=== PATIENT | male | born 1950 | race Caucasian/White ===

== ENCOUNTER → 2019-12-04 13:55 | Outpatient (CLI) | payer OTHER, SELFPAY ==
[2019-12-04 14:05] LABS: Bacteria Urine None Seen; RBC Urine None Seen (0-5/HPF); WBC Urine None Seen (0-5/HPF)
[2019-12-04 14:45] LABS: Appearance Urine UA CLEAR; Bilirubin Urine UA NEGATIVE (NEGATIVE); Color Urine UA YELLOW; Glucose Urine UA NEGATIVE (Negative); Ketones Urine UA NEGATIVE (NEGATIVE); Leukocyte Esterase Urine UA NEGATIVE (NEGATIVE); Nitrite Urine UA NEGATIVE (Negative); Occult Blood Urine UA NEGATIVE (Negative); Protein Urine UA NEGATIVE (Negative); Specific Gravity Urine UA 1.025 (1.000-1.035); Urobilinogen Urine UA 0.2 E.U./dL (0.2)
[2019-12-04 14:48] LABS: Add Manual Diff / Slide Review NO; Basophils Absolute Auto 100 /uL (0-100); Eosinophils Absolute Auto 100 /uL (0-450); Eosinophils Percent Auto 1.2 % (2-4); Hematocrit 39.7 % (41-53); Lymphocytes Absolute Auto 1800 /uL (1100-4500); Lymphocytes Percent Auto 33.4 % (25-40); Mean Corpuscular HGB Conc 32.7 % (30-36); Mean Corpuscular Hemoglobin 29.5 PG (26-34); Monocytes Absolute Auto 400 /uL (0-900); Monocytes Percent Auto 8.2 % (3-14); Neutrophils Absolute Auto 3000 /uL (1500-7000); Neutrophils Percent Auto 56.2 % (50-75); Platelet Count 181 X10^3/uL (150-400); Red Blood Cell Count 4.41 X10^6/uL (4.5-5.9); Red Cell Distribution Width 14.4 % (11.6-14.8); White Blood Cell Count 5.3 X10^3/uL (4.5-11.0)
[2019-12-04 14:50] LABS: Culture Indicated Urine Cult Not Indicated; Urine Comments Microscopic Normal
[2019-12-04 14:55] LABS: Hemoglobin A1C% w Est Avg Glu 5.6 % (4.0-6.0)
[2019-12-04 15:11] LABS: BUN Creatinine Ratio 23.9 (6-22); Blood Urea Nitrogen 21 mg/dL (9-20); Calcium 9.8 mg/dL (8.4-10.2); Carbon Dioxide 31 mmol/L (22-32); Chloride 101 mmol/L (98-107); Estimated Glomerular Filt Rate > 60.0 mL/min (>60); Glucose 119 mg/dL (80-110); HEMOLYSIS < 15 (0-50); Potassium 5.1 mmol/L (3.4-5.1); Sodium 137 mmol/L (137-145)
== END ==
PROVIDERS: Referring Provider Orthopaedic Surgery; Visit Provider Orthopaedic Surgery
DX: Z01.818 Encounter for other preprocedural examination (principal); Z01.812 Encounter for preprocedural laboratory examination; R73.9 Hyperglycemia, unspecified; N39.0 Urinary tract infection, site not specified
CPT/HCPCS: 36415; 80048; 81001; 83036; 85025; 93005

== ENCOUNTER → 2019-12-19 11:14 | Outpatient (CLI) | payer OTHER, SELFPAY ==
[2019-12-20 10:32] LABS: COVID19 Sendout Not Detected (Not Detect)
== END ==
PROVIDERS: Visit Provider Physician Assistant
DX: Z11.59 Encounter for screening for other viral diseases (principal)
CPT/HCPCS: 87635

== ENCOUNTER 2019-12-22 10:18 | Day surgery (SDC) | payer MEDICARE, OTHER, SELFPAY ==
[2019-12-15 12:49] VITALS: BMI 22.4
[2019-12-22] VITALS (16 sets, daily range): BP systolic 92–126; BP diastolic 56–78; PULSE 60–73; RESP 10–18; TEMP 35.6–36.5; O2SAT 98–100; BMI 21.7
--- NOTE | 2019-12-22 | DI.RAD.S_ITS ---
PROCEDURE: XR HIP W PEL IF DONE RT 4V INDICATIONS: INTRA OP RIGHT HIP FILMS TECHNIQUE: 2 view(s) of the hip acquired. COMPARISON: None. FINDINGS: Intraoperative images of right hip arthroplasty, with hardware components in expected positions. The hip joint appears congruent. The visualized bony structures appear intact. IMPRESSION: Intraoperative fluoroscopic support for right hip arthroplasty. No acute hardware complication. Normal alignment. Dictated by: Martin Fuller M.D. on 12/22/2019 at 15:42 Approved by: Martin Fuller M.D. on 12/22/2019 at 15:43
--- NOTE | 2019-12-22 | DI.RAD.S_ITS ---
PROCEDURE: XR HIP W PEL IF DONE RT 2V INDICATIONS: TOTAL RIGHT HIP POST OP TECHNIQUE: 2 view(s) of the hip acquired. COMPARISON: [facility], , XR HIP W PEL IF DONE RT 4V, 12/22/2019, 13:01. FINDINGS: Bones: Patient is status post right total hip arthroplasty, with hardware components in expected positions. The hip joint appears congruent. The visualized bony structures appear intact. Moderate degenerative changes of the left hip are present. Soft tissues: Overlying postoperative changes are noted. No suspicious soft tissue densities. IMPRESSION: Expected postoperative changes status post right total hip arthroplasty without acute hardware complication. Dictated by: Martin Fuller M.D. on 12/22/2019 at 15:47 Approved by: Martin Fuller M.D. on 12/22/2019 at 15:48
[2019-12-22] MEDS: LACTATED RINGERS 1,000 ML 42 ML IV ×2 (10:40→14:25)
[2019-12-22] MEDS: CELECOXIB 200 MG CAPSULE PO (10:45)
[2019-12-22] MEDS: VANCOMYCIN 1,000 MG/200 ML PIGGYBACK 200 MG IV ×2 (10:45→23:37)
[2019-12-22] MEDS: ACETAMINOPHEN 325 MG TABLET 975 MG PO (10:46)
--- NOTE | 2019-12-22 11:01 | P.OP_ITS ---
Operative Date/Time/Diagnoses Date of procedure: 12/22/19 Time of procedure: 11:41 Pre-op diagnosis: right hip OA Post-op diagnosis: same Procedure & Clinicians Procedure: Right total hip arthroplasty anterior approach Same procedure as scheduled: Yes Indications: The patient has had progressively worsening right hip pain with radiographic changes consistent with arthritis. Non-operative management has failed and the patient has requested total hip replacement. The risks, benefits and alternatives to surgery were discussed with the patient prior to proceeding. Risks discussed included, but were not limited to, failure to relieve pain, leg length discrepancy, dislocation, stiffness, infection, nerve damage, deep venous thrombosis, pulmonary embolism, stroke, coma, heart attack, permanent paralysis and , as well as the potential need for eventual revision of the prosthetic. Surgeon: Luz Latif Assistant District Attorney: Niels Mccartney Anesthesia Type: General and Spinal Operative Notes Findings: Severe right hip osteoarthritis, good quality bone, good stability Closure Type: primary Specimen(s): none sent Prosthetic devices, grafts, tissues, transplants, or devices: Latif and Nephew R3 54 mm cup. 54 mm cup, 15 mm, anthology standard offset size 9, -3 Oxinium head Estimated Blood Loss (mL): 250 Blood products transfused: none Procedure in detail: The patient was brought to the operating room. Patient was carefully positioned in the supine position. Time-out was performed and antibiotics were given. Anesthesia was induced. She was positioned in the on the table in order to allow hyperextension of the hip. The right lower extremity was prepped and draped in a standard sterile fashion. An anterior right hip incision was made 1 fingerbreadth lateral to the anterior superior iliac spine and extended distally towards the greater trochanter. Dissection was carried out through skin and subcutaneous tissues. The skin and subcutaneous tissues were carefully injected with Lidocaine with epi. Superficial hemostasis was achieved. The fascia over the tensor fascia yi was defined and incised with a knife. Two Allis clamps were used to grasp the fascia. Tensor fascia yi was retracted laterally. A gelpi retractor was placed. Dissection was carried out down along the neck. The circumflex vessels were carefully identified and cauterized with the Aqua Mantis. There was good visualization of the femoral neck. A Cobra was placed superior to the neck and the gluteus fibers were carefully stripped from that superior aspect of the capsule. A 2nd retractor was placed along the inferior aspect of the neck. The rectus insertion along the capsule was partially released. A 3rd retractor that was then gently placed over the rim of the acetabulum under the rectus. Capsule was carefully incised and released from the intertrochanteric line circumferentially superior to the mid sagittal line and inferiorly to the mid sagittal line until the lesser trochanter was palpable. A tag stitch was placed both in the superior and inferior limb of the capsular insertion. Along the acetabulum capsule was also released up to the mid sagittal 12:00 position. A portion of the labrum was resected. A saw was used to perform an osteotomy at the level of the intertrochanteric line and the junction of the superior femoral neck leaving approximately 1 finger breath of residual inferior neck above the lesser trochanter. A 2nd cut was made along the femoral neck at the base of the head and a napkin ring of neck was removed. Corkscrew was placed in the femoral head and the head was removed without difficulty. Retractors were then repositioned around the acetabulum. Residual labrum was resected and additional osteophytes were removed. A reamer that was 4 mm below the templated size was placed by hand in the acetabulum and it was reamed to centralize the acetabulum. It was then reamed up to 2 under the templated size and fluoroscopy was brought in to confirm the position of the reaming and depth of reaming. I reamed 1 under the anticipated size. A trial cup was placed and noted that it was appropriately sized and fluoroscopy confirmed position and depth. The component was open and inserted without difficulty fluoroscopic imaging was used to confirm that the cup had been adequately seated and was well positioned. It was further stabilized with a single screw. Neutral poly liner was placed. The cup was tested and noted to be stable. Attention was then directed to the femur. The femur was gently hyperextended additional capsular release was performed as needed in order to allow adequate visualization of the proximal femur with elevation of the femur. Patient was placed in a hyperextended slightly adducted position with maximum external rotation. Box osteotome was used to check for any residual neck as well as sclerotic bone along the trochanter. [place] pepper was placed in the femur. Additional broaching was performed. Canal finder was used to determine the ali gnment of the canal and position. Size 1 broach was placed. The canal was then appropriately broached up to the templated size as long as there was adequate stability of the broach and serial advancement of the broach without excessive impingement. Specific attention was directed at avoiding varus attempting to direct the distal aspect of the broach more anteriorly and avoiding excessive anteversion. Trial reduction showed acceptable range of motion, good stability, no posterior impingement, worship of leg length and appropriate lateral shuck. I also hyperflexed the hip and checked that there was no impingement anteriorly and there was good stability with flexion, adduction and internal rotation. Marcaine and Exparel were injected. The stem was placed without difficulty. Repeat trial reduction and x-ray showed acceptable overall position, length, and no evidence of the femoral fracture. Final head was placed. Wound was meticulously irrigated with normal saline. The hip was reduced and additional Exparel and Marcaine were injected. The capsule was closed with interrupted nonabsorbable sutures. The fascia of the tensor was closed with interrupted and running Vicryl. No drain was placed. Any tensor fascia yi muscle that appeared to be contused or injured which was a minimal amount was carefully resected. Capsule around the tensor was injected with Exparel and Marcaine. The skin was closed with barbed stitches for the subcutaneous tissue and skin. We also used surgical glue. The wound was dressed sterilely. Brief Betadine soak was also used and was meticulously irrigated with normal saline. Patient was transferred to recovery room in satisfactory condition. Complications: none Post-operative Condition: stable Disposition: Acute Care Plan for aftercare: The patient will be maintained on a standard total hip replacement protocol with weight bearing as tolerated and anterior hip precautions. The patient will receive Aspirin and sequential compression devices for DVT prophylaxis. The patient will be discharged home when safe for the home environment.
--- NOTE | 2019-12-22 11:01 | PM.PREOP ---
Pre-operative Note COVID-19 COVID-19 status: Negative Interval Note History & Physical reviewed/Exam performed by Physician: Yes Changes to H&P: No
[2019-12-22] MEDS: TRANEXAMIC ACID 1,000 MG VIAL 1000 MG INJ ×2 (11:35→14:21)
[2019-12-22] MEDS: GENTAMICIN 200 MG in SODIUM CHLORIDE 0.9% 100 ML 105 ML IV (11:50)
--- NOTE | 2019-12-22 12:07 | SUR.OPER ---
Supine, head on pillow, torso on pink pad positioner. Iliac crest at flex of foot end of table. Gel roll under operative hip. Both arms secured on arm boards <90 degrees abduction.
[2019-12-22] MEDS: BUPIVACAINE 0.25% W/ EPI 30 ML VIAL 60 ML INJ (12:14)
[2019-12-22] MEDS: BUPIVACAINE LIPOSOME 266 MG/20 ML VIAL INJ (12:15)
[2019-12-22] MEDS: SODIUM CHLORIDE IRRIG SOLUTION 250 ML, POVIDONE-IODINE SPONGE STICKS 1 APPLIC IRR (12:19)
[2019-12-22] MEDS: OXYCODONE/ACETAMINOPHEN 5/325 TABLET 1 TAB PO (15:05)
--- NOTE | 2019-12-22 16:05 | PC.NURSE ---
Post-op note: Martin brought from PACU to 213 via hospital bed, he is awake, alert, A&O x3 & situation. VS are stable. He denies right hip pain, reported my back hurts, pillow placed underneath knees to relieve pressure. Right anterior hip aquacel is CDI, ice pack in place. Pt reports RLE numb from hip extending to his toes; unable to wiggle toes, move legs, feet or toes. Does feel nurse hand pressure on right knee and lower leg. Leg slightly cool [id number], good color to skin & pedal pulses are strong bilaterally. Wearing bilateral calf SCD's. Denies nausea, ice chips given, fresh coffee being made as his only request is a cup of coffee. IV to right hand patent, drsg CDI. No J-loop present. J-loop placed, I assisted him to call his Sho, who said she is on her way to the hospital. Patient oriented to room & call button, instructed to call if has any needs/concerns. Fall precautions are in place, bed alarm activated.
[2019-12-22] MEDS: LACTATED RINGERS 1,000 ML 125 ML IV (16:30)
[2019-12-22] MEDS: ACETAMINOPHEN 325 MG TABLET 650 MG PO ×2 (18:21→22:05)
[2019-12-22] MEDS: IBUPROFEN 400 MG TABLET PO (18:21)
[2019-12-22] MEDS: ASPIRIN EC 81 MG TABLET PO (22:06)
[2019-12-22] MEDS: OXYCODONE IR 5 MG TABLET PO (23:42)
[2019-12-23] MEDS: IBUPROFEN 400 MG TABLET PO ×3 (00:01→09:10)
[2019-12-23 03:00] VITALS: BP 114/69; PULSE 76; RESP 16; TEMP 36.6; O2SAT 99
[2019-12-23] MEDS: OXYCODONE IR 5 MG TABLET PO (03:46)
[2019-12-23] MEDS: LEVOTHYROXINE 50 MCG TABLET PO (05:56)
[2019-12-23 06:05] LABS: Hematocrit 33.9 % (41-53); Hemoglobin 11.5 g/dL (13.5-17.5)
--- NOTE | 2019-12-23 07:48 | PM.PN.1 ---
Subjective Subjective Date Patient Seen: 12/23/19 Time Patient Seen: 07:48 Interval history: He notes that he is doing well overall. He is status post a right total hip arthroplasty. He did not have difficulty voiding and he has no nausea he has been up with nursing. Exam Vital Signs (past 8 hours): - 12/23/19 03:00 Temperature 97.9 F Pulse Rate 76 Respiratory Rate 16 Blood Pressure 114/69 Pulse Oximetry 99 Oxygen Delivery Method Room Air Oxygen Flow Rate 0 Narrative Exam Narrative: Dressing is dry, calfs are soft bilaterally no pain with gentle range of motion in the hip been able to do an active straight leg raise without difficulty, leg lengths are equal Objective Labs Result Diagrams: 12/23/19 05:47 Labs: Laboratory Results - last 24 hr 12/23/19 05:47 Hgb 11.5 L Hct 33.9 L Assessment & Plan Assessment & Plan narrative: Doing well status post right total hip arthroplasty continue to mobilize with physical therapy okay to discharge to home and follow up with me in about 10 days.
[2019-12-23 08:28] VITALS: BP 104/64; PULSE 70; RESP 17; TEMP 36.8; O2SAT 100
[2019-12-23] MEDS: ACETAMINOPHEN 325 MG TABLET 650 MG PO (09:10)
[2019-12-23] MEDS: ASPIRIN EC 81 MG TABLET PO (09:10)
[2019-12-23] MEDS: DOCUSATE 100 MG CAPSULE PO (09:10)
--- NOTE | 2019-12-23 10:55 | PC.NURSE ---
Assess- Patient is A&Ox3, up with physical therapy and ambulating well. Given tylenol and ibuprofen for discomfort and helpful. He has not needed any narcotic pain meds this shift thus far. Up and worked with physical therapy, he is going to be discharged around 1130. Dressing to anterior aspect of t.top hip is cdi with an aquacel in place. He is getting dressed at this time and sitting up in his chair.
--- NOTE | 2019-12-23 11:08 | PT.IIE ---
Current Diagnoses Unilateral primary osteoarthritis, right hip (12/22/19) Surgery Performed Operation Date: 12/22/19 12:15 Actual Procedures p Total Hip Arthroplasty/Anterior Approach(Right) - Luz Latif MD Surgical History (Last Updated 12/15/19 @ 13:12 by Taylor Woods, RN) Hx of shoulder surgery (Acute) Medical History (Last Updated 12/15/19 @ 13:12 by Taylor Woods, RN) History of torn meniscus of left knee (Acute) HLD (hyperlipidemia) (Acute) Hypothyroidism (Acute) Lipoma (Acute) Osteoarthritis (Acute) Physical Therapy Inpatient Evaluation/Re-Eval M1 PT/OT-IP Prior Functional Status Start: 12/23/19 08:36 Freq: NEEDED Status: Active Protocol: Document 12/23/19 09:00 (Rec: 12/23/19 11:08 [id number]) Medical Review Prior Functional Status Medical History Reviewed Yes Diet/Fluid Consistency Regular Communication no deficits noted. Effective communicator Mobility and Gait independent for all mobility without AD. Active hiker and biker couple times a week Activities of Daily Living and IADL's independent for ADLs and IADLs and able to drive Social History Household Members spouse Living Arrangements House Number of Floors (Floors) One Floor Number of Stairs To Enter/Railing? no MAMIE Home Environment Standard Height Toilet,Walk in Shower,Built-In Shower Seat Home Equipment Front Wheel Walker,Straight Cane,Raised Toilet Seat w/ Armrests,Shower Seat with Backrest,Security Services Manager,Grab Bars Near Toilet Employment Status Retired Additional Social History Comment Pt lives in [place] with his who is also very active and independent and will be able to assist if needed. Pt also has neighbors to assist if needed. Pt just retired yesterday from [employer]. M2 PT-IP Current Condition Start: 12/23/19 08:36 Freq: NEEDED Status: Active Protocol: Document 12/23/19 09:00 (Rec: 12/23/19 11:08 [email or web address]) Physical Therapy Current Condition Current Condition Evaluation Date 12/23/19 Treatment Diagnosis R MODESTO (anterior) ,difficulty in walking Onset Date 12/22/19 Precautions Anterior Hip Precautions No Hip Extension,No Hip External Rotation Weight Bearing Status Weight Bearing Status Weight Bear as Tolerated M3 PT-IP Subjective Start: 12/23/19 08:36 Freq: NEEDED Status: Active Protocol: Document 12/23/19 09:00 (Rec: 12/23/19 11:08 [email or web address]) Subjective Physical Therapy Visit Type Type Initial Evaluation Visit Start Time 09:00 Visit Stop Time 09:24 Total Visit Minutes 24 Number of CALTRANS EQUIPMENT OPERATOR Visits 0 Physical Therapy Visit Comments Patient Comments I dont have any pain at this point. Patient Goals To return home with his Therapy Pain Assessment Pain When Pain Assessed During Mobility Pain Present Pain Present Pain Reported Location Right Hip Intensity 1 Scale Used Numeric (0 - 10) Description Aching Pain Management Techniques Modification of Treatment,Re- positioning,Timing of Activity with Medications M4 PT-IP Mobility and Gait Start: 12/23/19 08:36 Freq: NEEDED Status: Active Protocol: Document 12/23/19 09:00 (Rec: 12/23/19 11:08 [email or web address]) PT-Transfer Assessment Sit to and From Stand Sit to and from Stand Standby Assistance,Use of Upper Extremities Equipment Transfer Assistive Device Gait Belt,Front Wheeled Walker Orthotic/Prosthetic Devices or Brace: No Transfers Transfer Destination Chair Transfer Technique Stand Step Pivot Transfer Ability Level of Assist Standby Assistance,Use of Upper Extremities Comments Mobility Comments Pt was up in chair upon PT arrival. BP at 96/61. Denies pain and discomfort. Pt able to recall all precautions and agreed to mobilize with PT. Pt then stood up with B UE push off from armrests with SBA. He practiced standing lateral weight shift for weight acceptance on LLE. He then proceed to amb with FWW SBA to hallway. Pt initially amb with slight R toe in gait and lack of heel strike, but he was able to correct with cues. Pt reports minimal discomfort and able to amb with close to normal gait mechanics. Pt amb 440 ft in AC unit without c/o discomfort. Pt returned to room and sat in chair with SBA . BP at 98/56. Call light placed within reach. Gait Assessment Gait Gait Assistance Required: Standby Assistance Distance (Feet) 440 Able to Maintain Weight Bearing Status Yes During Gait Assistive Devices Assistive Device Gait Belt,Small Based Quad Cane,Front Wheeled Walker Gait Deviations General Gait Pattern Antalgic,Decreased Stride Length,Decreased Feet Clearance Factors Limiting Gait Function Factors Limiting Gait Function Decreased Activity Tolerance, Decreased Strength,Limited Range of Motion,Pain,Poor Balance Comments Gait Comments see mobility comments. Stair Climbing Assessment Comments Stair Climbing Comments no steps at home PT-Balance Assessment Sitting Balance and Reactions Static Sitting Balance Ability Normal Dynamic Sitting Balance Ability Normal Standing Balance and Reactions Static Standing Balance Ability Normal Dynamic Standing Balance Ability Good Device Used FWW M5 PT-IP Objective Assessments Start: 12/23/19 08:36 Freq: NEEDED Status: Active Protocol: Document 12/23/19 09:00 (Rec: 12/23/19 11:08 [email or web address]) Orientation Orientation/Cognition Level of Alertness Alert Orientation Name,Age,Birthday,Month,Date, Year,Day of Week,Place, Situation Language Function Ability No Deficits Noted Safety Awareness Understands Safety Issues Memory Description No Deficits Noted Gross Range of Motion Upper Extremity ROM Assessment Within Functional Limits Lower Extremity ROM Assessment Right Impaired Strength Upper Extremity Strength Assessment Within Functional Limits Lower Extremity Strength Assessment Right Impaired Hip 4/5 Knee 5/5 Coordination Assessment Gross Coordination Gross Coordination WNL Sensation Assessment Sensation Gross Sensation WNL Muscle Tone Muscle Tone WNL Yes M6 PT-IP Treatment Start: 12/23/19 08:36 Freq: NEEDED Status: Active Protocol: Document 12/23/19 09:00 (Rec: 12/23/19 11:08 [email or web address]) Physical Therapy Treatment Education Education Provided Precautions,Weight Bearing Status,Post-Op Packet,Safety M7 PT-IP Assessment and Plan Start: 12/23/19 08:36 Freq: NEEDED Status: Active Protocol: Document 12/23/19 09:00 (Rec: 12/23/19 11:08 [email or web address]) PT Summary Assessment and Plan Potential Rehabilitation Potential Excellent Status of Condition at Evaluation Stable Summary Impairments Pain,ROM,Strength,Balance,Gait ,Activity Tolerance Progress Towards Goals Safe For Discharge Assessment Summary This is a low complexity evaluation for this 69yo male s/p POD1 RTHA with anterior approach. Pt understands all post op precautions and have good safety awareness. Upon assessment, pt ambulated 440 ft with FWW SBA with close to normal gait mechanics. He was also very safe for transfers and demonstrated good transfer mechanics. Pt is safe to go home with 's assistance and outpatient therapy to improve his mobility and strength. Frequency of Treatment Frequency Of Treatment Discharge Recommendations To Nursing Amount of Assist Needed Standby Assistance Discharge Recommendations PT Discharge Recommendations Home with Assistance, Outpatient PT Transportation Needs at Discharge Private Vehicle
--- NOTE | 2019-12-23 14:39 | CM.DANOTE ---
DCP/Assessment: Reviewed chart. Patient is a 69yr old male admitted to [facility] for right MODESTO performed on 12-22-[address] Latif. No PCP listed. Primary payor is 1)[facility] Medicare 2)Medicare A only. Attempted to meet with patient this afternoon. Patient cleared by therapy and discharged by orthopedic team. Spoke with RN/Shirley whom reports patient had no d/c planning needs. P: Home today. Patient plans to do outpatient therapy at orthopedics, had all needed DME. KELLI Burger Discharge Planning/Care Management CM Discharge Assessment Start: 12/23/19 14:32 Freq: Status: Active Protocol: Document 12/23/19 14:32 KJS (Rec: 12/23/19 14:39 KJS [id number]) Discharge Planning Assessment Assigned Research Development Director KELLI Burger Contact Information Sho Baer (spouse) Advance Directives? Yes Advance Directives on File No History Provided By Medical Record Has Patient been admitted in last 30 No days? Prior Living Arrangements House Household Members spouse Type of transporation used prior to Drives own vehicle admit Independent with ADL's Yes: Per nrsg patient, patient I with ADL's. Is patient alert and oriented? Yes Caregiver for Another No DME Already Rented / Owned FWW / Walker Patient/Family Preference OP PT Therapy Barriers to Discharge No Discharge Plan Home Transportation Arrangement Family to provide transport. Referrals Initiated None needed Review Status In Process Next Review Type Continued Stay Review Pre-Anesthesia Assessment Start: 12/15/19 12:49 Freq: Status: Discharge Protocol: Document 12/15/19 12:49 CAB (Rec: 12/15/19 13:26 CAB [id number]) Pre-Anesthesia Assessment Patient Information Reviewed Via Phone Assessment Assessment Completed With Patient Diagnostic Results BMP/CMP,CBC,EKG,Urinalysis Comment Labs/EKG @ 12/04/19 COVID screen scheduled for 12/18 @ Primary Care Provider Alejandrina Seen Specialist in Last 12 Months Yes Specialist Seen Policy Loan Calculator,Orthopedist, Other Comment Sports med Primary Language South Korean Lead Developer Required No Height 182.88 cm Weight 74.843 kg Body Mass Index (BMI) 22.4 Hearing Ability Normal Visual Assist Glasses Dentition Type Teeth, Natural Present Barriers to Learning None Hx Anesthesia Reactions Yes: Pt feels anesthesia caused extreme constipation s/ p lipoma removed Hx Family Anesthesia Reaction No Hx Malignant Hyperthermia No Hx Blood Transfusions No Anesthesia Review Requested No Asphalt Coater No alcohol intake current alcohol intake frequency 0-2 drinks per day Smoking Status Former smoker Tobacco type cigarettes,pipe how long ago did patient quit smoking Quit 1973 Substance Use Type marijuana Comment Advised not to smoke marijuana 24 hours prior Pain Present Pain Reported Musculoskeletal Symptoms Abnormal Gait,Difficulty Walking,Joint Pain History of Falling (Recent or History of No ) Patient is completely paralyzed or No completely immobile Mental Status Oriented to own ability Is patient on oxygen? No Does patient have SALEH/SOB No Hx Sleep Apnea No Currently Taking a Beta Raf No Can You Climb a Flight of Stairs Without Yes SOB Hx Chest Pain No Hx SOB No Hx Syncope or Dizziness No Anti-Coagulant Therapy No Has a Clinic Receptionist No Cardiac Testing No Hx Pacemaker/ICD No Pacemaker Rep Required? No Cardiac Clearance Received Not Applicable Diet Type At Home Regular dysphagia No Gastrointestinal Symptoms Constipation Urinary Catheter Present No Hx Urinary Self Catheterization No Diabetes No HgbA1C 5.6 Date 12/04/19 Hx Drug Resistant Organism No Presence of External or Internal Medical No Devices Have you had any close contact with No someone diagnosed with COVID-19? Evaluation/Screening for possible COVID- Yes 19 infection completed? Marital Status Lives With spouse Prior Living Arrangements House Number of Floors (Floors) One Floor Support System Spouse Does the Patient Have Assistance After Yes Surgery Patient Discharge Plan Description Return Home Comment Pt advised possible same day surgery per surgeon Feels Safe in Current Environment Yes Been Physically Hurt or Threatened By a No Person in Current Environment Do you have thoughts of harming yourself None or others? Are you currently considering suicide? No Do you have a plan to hurt yourself or No Plan others? Do You Have Any Spiritual Beliefs That No May Affect Your HC Choices? Do You Have Any Cultural Practices That No May Affect Your HC Choices? Comment Christianity Who Can We Speak to About Patient's Care Family, friends Identifying Code for Release of Patient Declines to issue Information Health Care Proxy/Next of Kin Sho () Health Care Proxy Emergency Contact Name Sho () Emergency Contact Advance Directives? Yes Advance Directives on File No Requested Patient Bring Advanced Yes Directives DOS Power of Cable Placer Yes Power of Cable Placer Name Sho () Power of Cable Placer PAC Instructions Durable medical equipment, Medications to take/avoid, Nasal antibiotic,No ETOH/ petroleum product on skin DOS, NPO,Post-op transportation,Pre -surgical wash,Sturdy shoes/ comfortable clothes,Do not bring valuables and remove jewelry
== END 2019-12-23 11:37 | disposition home or self-care (01) ==
LOC: OR 10:26 → AC 10:26
PROVIDERS: Referring Provider Orthopaedic Surgery; Visit Provider Orthopaedic Surgery
PROC: (CPT 27130; principal; 2019-12-22 12:15)
DX: M16.11 Unilateral primary osteoarthritis, right hip (principal); E03.9 Hypothyroidism, unspecified
CPT/HCPCS: 27130; 36415; 73502; 73503; 76000; 85014; 85018; 97116; 97161; C1776; C9290; J1100; J2250; J2405; J2704; J3010

== ENCOUNTER → 2020-05-03 08:10 | Outpatient (CLI) | payer MEDICARE, OTHER, SELFPAY ==
[2019-12-22 16:19] VITALS: BMI 21.7
--- NOTE | 2020-05-03 | DI.US.S_ITS ---
PROCEDURE: US ABD AORTA ANEURYSM SCREEN INDICATIONS: SCREENING FOR CARDIOVASCULAR DISORDERS TECHNIQUE: Real time scanning was performed of the aorta and iliac arteries, with image documentation. COMPARISON: None. FINDINGS: Aorta: Proximal aortic diameter measures 2.3 x 2.4 cm. Mid-aorta measures 2 x 2.1 cm. Distal aortic diameter is 1.8 x 1.8 cm. Iliac arteries: Right common iliac artery measures 1 x 1.4 cm. Left common iliac artery measures 1.1 x 1.2 cm. IMPRESSION: Negative for aneurysm. Dictated by: Gato Sharif M.D. on 05/03/2020 at 8:15 Approved by: Gato Sharif M.D. on 05/03/2020 at 8:16
== END ==
PROVIDERS: Referring Provider Family Medicine Adult Medicine; Visit Provider Family Medicine Adult Medicine
DX: Z13.6 Encounter for screening for cardiovascular disorders (principal)
CPT/HCPCS: 76706

== ENCOUNTER → 2021-09-26 11:18 | Outpatient (CLI) | payer OTHER, SELFPAY ==
[2019-12-22 16:19] VITALS: BMI 21.7
--- NOTE | 2021-09-26 11:32 | DI.RAD.S_ITS ---
PROCEDURE: XR CERVICAL SPINE 2V OR 3V INDICATIONS: CHEST PAIN TECHNIQUE: 3 view(s) of the cervical spine were acquired. COMPARISON: None. FINDINGS: Bones: No fractures or dislocations to the T1 level. The lateral masses of C1 appear intact on the odontoid view. No suspicious bony lesions. Severe cervical spondylosis with multilevel facet arthropathy and multilevel disc height loss and uncovertebral joint hypertrophy. There is interbody fusion at C4-C5. Soft tissues: No prevertebral soft tissue swelling. IMPRESSION: Severe cervical spondylitic change. Dictated by: Power Dye M.D. on 09/26/2021 at 12:30 Approved by: Power Dye M.D. on 09/26/2021 at 12:33
--- NOTE | 2021-09-26 11:33 | DI.RAD.S_ITS ---
PROCEDURE: XR FOOT LT MIN 3V INDICATIONS: LEFT FOOT PAIN TECHNIQUE: 3 views of the foot were acquired. COMPARISON: None. FINDINGS: Bones: No fractures or dislocations. No suspicious bony lesions. Scattered IP degenerative narrowing is present. Soft tissues: No tibiotalar joint effusion. Achilles tendon appears normal. IMPRESSION: Scattered degenerative changes consistent with arthritis. Dictated by: Danielle Wilson M.D. on 09/26/2021 at 12:31 Approved by: Danielle Wilson M.D. on 09/26/2021 at 12:32
== END ==
PROVIDERS: PCP Internal Medicine; Referring Provider Internal Medicine; Visit Provider Internal Medicine
DX: M47.812 Spondylosis without myelopathy or radiculopathy, cervical region (principal); M79.672 Pain in left foot; M54.2 Cervicalgia; R07.9 Chest pain, unspecified
CPT/HCPCS: 72040; 73630

== ENCOUNTER → 2022-02-02 15:22 | Outpatient (CLI) | payer OTHER, SELFPAY ==
[2019-12-22 16:19] VITALS: BMI 21.7
[2022-02-02 17:06] LABS: Appearance Urine UA CLEAR; Bilirubin Urine UA NEGATIVE (NEGATIVE); Color Urine UA YELLOW; Glucose Urine UA TRACE g/dL (Negative); Ketones Urine UA TRACE (NEGATIVE); Leukocyte Esterase Urine UA NEGATIVE (NEGATIVE); Nitrite Urine UA NEGATIVE (Negative); Occult Blood Urine UA NEGATIVE (Negative); Protein Urine UA NEGATIVE (Negative); Urobilinogen Urine UA 0.2 E.U./dL (0.2)
[2022-02-02 17:20] LABS: Amorphous Sediment Urine 1+; Bacteria Urine None Seen; Culture Indicated Urine Cult Not Indicated; RBC Urine None Seen (0-5/HPF); WBC Urine None Seen (0-5/HPF)
[2022-02-02 18:24] LABS: Add Manual Diff / Slide Review NO; Basophils Absolute Auto 100 /uL (0-100); Basophils Percent Auto 0.7 % (0-2); Eosinophils Absolute Auto 0 /uL (0-450); Eosinophils Percent Auto 0.5 % (2-4); Hematocrit 37.6 % (41-53); Hemoglobin 12.8 g/dL (13.5-17.5); Lymphocytes Absolute Auto 1600 /uL (1100-4500); Lymphocytes Percent Auto 22.2 % (25-40); Mean Corpuscular HGB Conc 34.1 % (30-36); Mean Corpuscular Hemoglobin 29.9 PG (26-34); Mean Corpuscular Volume 87.5 fL (80-100); Monocytes Absolute Auto 500 /uL (0-900); Monocytes Percent Auto 6.8 % (3-14); Neutrophils Absolute Auto 5100 /uL (1500-7000); Neutrophils Percent Auto 69.8 % (50-75); Platelet Count 219 X10^3/uL (150-400); Red Cell Distribution Width 14.3 % (11.6-14.8); White Blood Cell Count 7.3 X10^3/uL (4.5-11.0)
[2022-02-02 18:26] LABS: Alanine Aminotransferase 19 IU/L (<50); Albumin 4.3 g/dL (3.5-5.0); Albumin Globulin Ratio 1.4 (1.0-2.8); Alkaline Phosphatase 70 U/L (38-126); Aspartate Aminotransferase 25 IU/L (17-59); Bilirubin Total 0.8 mg/dL (0.2-1.3); Blood Urea Nitrogen 22 mg/dL (9-20); Calcium 9.4 mg/dL (8.4-10.2); Carbon Dioxide 30 mmol/L (22-32); Chloride 100 mmol/L (98-107); Estimated Glomerular Filt Rate > 60 mL/min (>60); Glucose 98 mg/dL (80-110); HEMOLYSIS < 15 (0-50); Potassium 3.9 mmol/L (3.4-5.1); Sodium 140 mmol/L (137-145); Total Protein 7.3 g/dL (6.3-8.2)
[2022-02-02 20:22] LABS: Hemoglobin A1C% w Est Avg Glu 5.6 % (4.0-6.0)
== END ==
PROVIDERS: PCP Internal Medicine; Referring Provider Orthopaedic Surgery; Visit Provider Orthopaedic Surgery
DX: Z01.818 Encounter for other preprocedural examination (principal); R73.9 Hyperglycemia, unspecified; Z01.812 Encounter for preprocedural laboratory examination; N39.0 Urinary tract infection, site not specified; E78.5 Hyperlipidemia, unspecified
CPT/HCPCS: 36415; 80053; 81001; 83036; 85025; 93005; 93010

== ENCOUNTER → 2022-02-19 13:02 | Outpatient (CLI) | payer OTHER, SELFPAY ==
[2019-12-22 16:19] VITALS: BMI 21.7
[2022-02-19 14:11] LABS: COVID19 -Nasal RAPID Negative (Negative)
== END ==
PROVIDERS: PCP Internal Medicine; Referring Provider Orthopaedic Surgery; Visit Provider Orthopaedic Surgery
DX: Z20.822 Contact with and (suspected) exposure to COVID-19 (principal)
CPT/HCPCS: 87635; C9803

== ENCOUNTER 2022-02-20 06:40 | Observation (INO) | payer OTHER, SELFPAY ==
[2019-12-22 16:19] VITALS: BMI 21.7
[2022-02-13 09:49] VITALS: BMI 21.4
[2022-02-20] VITALS (14 sets, daily range): BP systolic 92–119; BP diastolic 53–79; PULSE 56–75; RESP 14–19; TEMP 35.8–37; O2SAT 94–100; BMI 21.4
[2022-02-20] MEDS: PREGABALIN 75 MG CAPSULE PO (07:12)
[2022-02-20] MEDS: CELECOXIB 200 MG CAPSULE PO (07:12)
[2022-02-20] MEDS: ACETAMINOPHEN 325 MG TABLET 975 MG PO (07:12)
[2022-02-20] MEDS: VANCOMYCIN 1,000 MG/200 ML PIGGYBACK 200 MG IV ×2 (07:12→18:37)
[2022-02-20] MEDS: LACTATED RINGERS 1,000 ML 42 ML IV (07:14)
--- NOTE | 2022-02-20 07:40 | PM.PREOP ---
Pre-operative Note COVID-19 COVID-19 status: Negative Interval Note History & Physical reviewed/Exam performed by Physician: Yes Changes to H&P: No
--- NOTE | 2022-02-20 07:40 | PM.OP.1 ---
Operative Date/Time/Diagnoses Date of procedure: 02/20/22 Time of procedure: 07:55 Pre-op diagnosis: left hip OA Post-op diagnosis: same Procedure & Clinicians Procedure: Left total hip arthroplasty anterior approach Same procedure as scheduled: Yes Indications: The patient has had progressively worsening left hip pain with radiographic changes consistent with arthritis. Non-operative management has failed and the patient has requested total hip replacement. The risks, benefits and alternatives to surgery were discussed with the patient prior to proceeding. Risks discussed included, but were not limited to, failure to relieve pain, leg length discrepancy, dislocation, stiffness, infection, nerve damage, deep venous thrombosis, pulmonary embolism, stroke, coma, heart attack, permanent paralysis and , as well as the potential need for eventual revision of the prosthetic. Surgeon: Luz Latif Compliance Representative Dealer: Niels Mccartney Anesthesia Type: General and Spinal Operative Notes Findings: Severe left hip arthritis, adequate stability, adequate bone Closure Type: primary Specimen(s): none sent Prosthetic devices, grafts, tissues, transplants, or devices: Latif and nephew R3 54 anthology, two 6.5 mm screw, size 9 standard offset anthology, neutral poly liner,-3 Oxinium femoral head Estimated Blood Loss (mL): 250 Blood products transfused: none Procedure in detail: The patient was brought to the operating room. Patient was carefully positioned in the supine position. Time-out was performed and antibiotics were given. Anesthesia was induced. He was positioned in the on the table in order to allow hyperextension of the hip. The left lower extremity was prepped and draped in a standard sterile fashion. An anterior left hip incision was made 1 fingerbreadth lateral to the anterior superior iliac spine and extended distally towards the greater trochanter. Dissection was carried out through skin and subcutaneous tissues. Superficial hemostasis was achieved. The fascia over the tensor fascia yi was defined and incised with a knife. Two Allis clamps were used to grasp the fascia. Tensor fascia yi was retracted laterally. A gelpi retractor was placed. Dissection was carried out down along the neck. The circumflex vessels were carefully identified and cauterized with the Aqua Mantis. There was good visualization of the femoral neck. A Cobra was placed superior to the neck and the gluteus fibers were carefully stripped from that superior aspect of the capsule. A 2nd retractor was placed along the inferior aspect of the neck. The rectus insertion along the capsule was partially released. A 3rd retractor that was then gently placed over the rim of the acetabulum under the rectus. Capsule was carefully incised and released from the intertrochanteric line circumferentially superior to the mid sagittal line and inferiorly to the mid sagittal line until the lesser trochanter was palpable. A tag stitch was placed both in the superior and inferior limb of the capsular insertion. Along the acetabulum capsule was also released up to the mid sagittal 12:00 position. A portion of the labrum was resected. A saw was used to perform an osteotomy at the level of the intertrochanteric line and the junction of the superior femoral neck leaving approximately 1 finger breath of residual inferior neck above the lesser trochanter. A 2nd cut was made along the femoral neck at the base of the head and a napkin ring of neck was removed. Corkscrew was placed in the femoral head and the head was removed without difficulty. Retractors were then repositioned around the acetabulum. Residual labrum was resected and additional osteophytes were removed. A reamer that was 4 mm below the templated size was placed by hand in the acetabulum and it was reamed to centralize the acetabulum. It was then reamed up to 2 under the templated size and fluoroscopy was brought in to confirm the position of the reaming and depth of reaming. I reamed 1 under the anticipated size. A trial cup was placed and noted that it was appropriately sized and fluoroscopy confirmed position and depth. The component was open and inserted without difficulty fluoroscopic imaging was used to confirm that the cup had been adequately seated and was well positioned. The cup was further stabilized with 2 screws. Neutral poly liner was placed. The cup was tested and noted to be stable. Attention was then directed to the femur. The femur was gently hyperextended additional capsular release was performed as needed in order to allow adequate visualization of the proximal femur with elevation of the femur. Patient was placed in a hyperextended slightly adducted position with maximum external rotation. Box osteotome was used to check for any residual neck as well as sclerotic bone along the trochanter. [place] pepper was placed in the femur. Additional broaching was performed. Canal finder was used to determine the alignment of the canal and position. Size 1 broach was placed. The canal was then appropriately broached up to the templated size as long as there was adequate stability of the broach and serial advancement of the broach without excessive impingement. Specific attention was directed at avoiding varus attempting to direct the distal aspect of the broach more anteriorly and avoiding excessive anteversion. Trial reduction showed acceptable range of motion, good stability, no posterior impingement, episcopalian of leg length and appropriate lateral shuck. I also hyperflexed the hip and checked that there was no impingement anteriorly and there was good stability with flexion, adduction and internal rotation. Marcaine and Exparel were injected. The stem was placed without difficulty. Repeat trial reduction and x-ray showed acceptable overall position, length, and no evidence of the femoral fracture. Final head was placed. Wound was meticulously irrigated with normal saline. The hip was reduced and additional Exparel and Marcaine were injected. The capsule was closed with interrupted nonabsorbable sutures. The fascia of the tensor was closed with interrupted and running Vicryl. No drain was placed. Any tensor fascia yi muscle that appeared to be contused or injured which was a minimal amount was carefully resected. Capsule around the tensor was injected with Exparel and Marcaine. The skin was closed with barbed stitches for the subcutaneous tissue and skin. We also used surgical glue. The wound was dressed sterilely. Brief Betadine soak was also used and was meticulously irrigated with normal saline. Patient was transferred to recovery room in satisfactory condition. Complications: none Post-operative Condition: stable Disposition: Acute Care Plan for aftercare: The patient will be maintained on a standard total hip replacement protocol with weight bearing as tolerated and anterior hip precautions. The patient will receive Aspirin and sequential compression devices for DVT prophylaxis. The patient will be discharged home when safe for the home environment.
--- NOTE | 2022-02-20 08:00 | DI.RAD.S_ITS ---
PROCEDURE: XR HIP W PEL IF DONE LT 2V INDICATIONS: INNER OP LEFT TECHNIQUE: 4 intraoperative fluoroscopic images of pelvis and left hip acquired. COMPARISON: [facility], , XR HIP W PEL IF DONE RT 2V, 12/22/2019, 14:49. FINDINGS: Intraoperative fluoroscopic images of pelvis and left hip shows left total hip arthroplasty in progress. IMPRESSION: Fluoro guidance was provided intraoperatively for left total hip arthroplasty. Dictated by: Jose Lam M.D. on 02/20/2022 at 12:12 Approved by: Jose Lam M.D. on 02/20/2022 at 12:13
[2022-02-20] MEDS: CLINDAMYCIN 900 MG/50 ML PIGGYBACK 50 MG IV (08:10)
[2022-02-20] MEDS: TRANEXAMIC ACID 1,000 MG VIAL 1000 MG INJ ×2 (08:10→10:15)
--- NOTE | 2022-02-20 08:26 | SUR.OPER ---
Supine on padded [place] table with bilateral legs secured in padded positioning boots and suspended in positioning spars, operative leg in traction per surgeon. Head on one pillow. Arm on non-operative side secured on padded armboard <90 degrees abduction. Arm on operative side padded and resting across chest then secured with tape over sheet. Padded perineal post in place per surgeon. POSITION APPROVED BY SURGEON AND ANESTHESIA
[2022-02-20] MEDS: BUPIVACAINE 0.25% (PF) 60 ML, EPINEPHrine 0.3 MG INJ (10:15)
[2022-02-20] MEDS: BUPIVACAINE LIPOSOME 266 MG/20 ML VIAL INJ ×2 (10:15→10:29)
--- NOTE | 2022-02-20 10:30 | DI.RAD.S_ITS ---
PROCEDURE: XR HIP W PEL IF DONE LT 2V INDICATIONS: LEFT ANTERIOR HIP TECHNIQUE: AP pelvis and lateral view of the left hip acquired. COMPARISON: [facility], [place], XR HIP W PEL IF DONE LT 2V, 02/20/2022, 9:24. FINDINGS: Bones: Patient is status post left hip arthroplasty, with hardware components in expected positions. The hip joint appears congruent. The visualized bony structures appear intact. Soft tissues: Overlying postoperative changes are noted. No suspicious soft tissue densities. IMPRESSION: Postop changes from left hip arthroplasty with anatomic hip alignment. Dictated by: Jose Lam M.D. on 02/20/2022 at 11:37 Approved by: Jose Lam M.D. on 02/20/2022 at 11:44
[2022-02-20] MEDS: HYDROMORPHONE 2 MG INJ IV ×2 (10:58→11:03)
[2022-02-20] MEDS: OXYCODONE IR 5 MG TABLET PO (11:00)
[2022-02-20] MEDS: LACTATED RINGERS 1,000 ML 125 ML IV ×2 (11:45→18:39)
--- NOTE | 2022-02-20 12:31 | PC.NURSE ---
PATIENT BROUGHT UP FROM PACU TO 221, ORIENTED TO ROOM AND CALL LIGHT. VSS. PAIN IS MILD, DULL TO LEFT HIP WITH ICE PACK IN PLACE. DRESSING CDI, BRUISING TO LEFT POSTERIOR THIGH NOTED. URINAL PLACED WITHIN REACH. CONTINUE TO MONITOR.
[2022-02-20] MEDS: IBUPROFEN 400 MG TABLET PO ×2 (13:34→18:37)
[2022-02-20] MEDS: ACETAMINOPHEN 325 MG TABLET 650 MG PO ×2 (13:35→18:37)
--- NOTE | 2022-02-20 16:18 | PT.IIE ---
Current Diagnoses Unilateral primary osteoarthritis, left hip (02/20/22) Surgery Performed Operation Date: 02/20/22 07:45 Actual Procedures p Total Hip Arthroplasty/Anterior Approach(Left) - Luz Latif MD Surgical History (Last Updated 02/13/22 @ 09:55 by Taylor Woods, RN) History of total right hip arthroplasty (12/22/19) Hx of shoulder surgery Medical History (Last Updated 12/15/19 @ 13:12 by Taylor Woods RN) History of torn meniscus of left knee HLD (hyperlipidemia) Hypothyroidism Lipoma Osteoarthritis Physical Therapy Inpatient Evaluation/Re-Eval M1 PT/OT-IP Prior Functional Status Start: 02/20/22 16:18 Freq: NEEDED Status: Active Protocol: Document 02/20/22 16:18 DLM (Rec: 02/20/22 16:30 DLM [id number]) Medical Review Prior Functional Status Medical History Reviewed Yes Diet/Fluid Consistency Regular Communication WNL, wears glasses Mobility and Gait Independent without device community distances, left hip pain when walking before surgery Activities of Daily Living and IADL's Independent Prior Functional Level (Other details) he is active with hiking and biking, he has trips to the [employer] planned Social History Household Members spouse Living Arrangements House Number of Floors (Floors) One Floor Number of Stairs To Enter/Railing? no steps to enter Home Environment Standard Height Toilet,Walk in Shower,Built-In Shower Seat Home Equipment Front Wheel Walker,Straight Cane,Raised Toilet Seat w/ Armrests,Shower Seat with Backrest,Lease Analyst,Grab Bars Near Toilet Employment Status Retired Additional Social History Comment retired from [employer] M2 PT-IP Current Condition Start: 02/20/22 16:18 Freq: NEEDED Status: Active Protocol: Document 02/20/22 16:18 DLM (Rec: 02/20/22 16:30 DLM [id number]) Physical Therapy Current Condition Current Condition Evaluation Date 02/20/22 Treatment Diagnosis left anterior [place], difficulty walking Onset Date 02/20/22 M3 PT-IP Subjective Start: 02/20/22 16:18 Freq: NEEDED Status: Active Protocol: Document 02/20/22 16:18 DLM (Rec: 02/20/22 16:30 DLM [id number]) Subjective Physical Therapy Visit Type Type Initial Evaluation Visit Start Time 15:45 Visit Stop Time 16:18 Total Visit Minutes 33 Number of DIGITAL TECHNICIAN Visits 0 Physical Therapy Visit Comments Patient Comments He reports only having a little aching in left hip area today Patient Goals Discharge home with to help tomorrow M4 PT-IP Mobility and Gait Start: 02/20/22 16:18 Freq: NEEDED Status: Active Protocol: Document 02/20/22 16:18 DLM (Rec: 02/20/22 16:30 DL [id number]) PT-Bed Mobility Assessment Supine to Sit Supine to Sit Standby Assistance,Bedrails Scooting Scooting to Edge of Bed Independent PT-Transfer Assessment Sit to and From Stand Sit to and from Stand Standby Assistance,Use of Upper Extremities Equipment Transfer Assistive Device Gait Belt,Front Wheeled Walker Transfers Transfer Destination Bed,Chair Transfer Technique Stand Step Pivot Transfer Ability Level of Assist Standby Assistance,Contact Guard Assistance,Use of Upper Extremities Comments Mobility Comments verbal cues for safe UE support during sit-stand Gait Assessment Gait Gait Assistance Required: Standby Assistance,Contact Guard Assist Distance (Feet) 40 Able to Maintain Weight Bearing Status Yes During Gait Assistive Devices Assistive Device Gait Belt,Front Wheeled Walker Gait Deviations General Gait Pattern Antalgic Factors Limiting Gait Function Factors Limiting Gait Function Decreased Activity Tolerance, Decreased Strength,Limited Range of Motion,Pain,Poor Balance Comments Gait Comments he tolerated gait in the room well, pt up to recliner, mild light-headedness today that did not prevent mobility/gait and resolved seated in recliner Vital Signs: seated BP 126/75, HR 67 after standing BP 116/68, HR 62 Stair Climbing Assessment Comments Stair Climbing Comments no stairs at home PT-Balance Assessment Sitting Balance and Reactions Static Sitting Balance Ability Normal Dynamic Sitting Balance Ability Normal Standing Balance and Reactions Static Standing Balance Ability Good Dynamic Standing Balance Ability Good Device Used FWW M5 PT-IP Objective Assessments Start: 02/20/22 16:18 Freq: NEEDED Status: Active Protocol: Document 02/20/22 16:18 DLM (Rec: 02/20/22 16:30 DL [id number]) Orientation Orientation/Cognition Level of Alertness Alert Orientation Name,Age,Birthday,Month,Date, Year,Day of Week,Place, Situation Language Function Ability No Deficits Noted Safety Awareness Understands Safety Issues Memory Description No Deficits Noted Gross Range of Motion Upper Extremity ROM Assessment Within Functional Limits Lower Extremity ROM Assessment Left Impaired Impairments post-op restrictions left hip Strength Upper Extremity Strength Assessment Within Functional Limits Lower Extremity Strength Assessment Left Impaired Hip flexion is painful post op but he can move it independently Knee 4/5 Ankle DF 5/5 Coordination Assessment Gross Coordination Gross Coordination WNL Sensation Assessment Sensation Gross Sensation WNL Muscle Tone Muscle Tone WNL Yes M6 PT-IP Treatment Start: 02/20/22 16:18 Freq: NEEDED Status: Active Protocol: Document 02/20/22 16:18 DLM (Rec: 02/20/22 16:30 DLM [id number]) Physical Therapy Treatment Exercises Exercises Ankle Pumps,Gluteal Sets,Quad Sets,Heel Slides Education Education Provided Precautions,Weight Bearing Status,Post-Op Packet,Safety Other Treatments Other Treatment Performed ice pack applied to incisional area after mobility M7 PT-IP Assessment and Plan Start: 02/20/22 16:18 Freq: NEEDED Status: Active Protocol: Document 02/20/22 16:18 DLM (Rec: 02/20/22 16:30 DL [id number]) PT Summary Assessment and Plan Potential Rehabilitation Potential Excellent Status of Condition at Evaluation Evolving Summary Impairments Pain,ROM,Strength,Balance,Bed Mobility,Transfers,Gait, Activity Tolerance Assessment Summary Martin is alert and resting in bed. He tolerated mobility and gait well this visit with mild and short duration light- headedness. Pt up to the recliner this visit. He has borrowed a FWW from [employer] and it was adjusted to his height. He reports his will be able to assist him as needed at home. Will plan for discharge home tomorrow if he is medically stable and continues to progress well. Goals Bed Mobility Goal Independent Transfer Goal Independent,Front Wheeled Walker Gait Goal Independent,Front Wheel Walker Gait Distance 150 feet Other Goals demonstrate good knowledge of his left anterior hip precautions Days to Meet Goals 2 Frequency of Treatment Frequency Of Treatment Twice a Day Treatment Plan Physical Therapy Treatment Plan Bed Mobility Training,Transfer Training,Gait Training, Therapeutic Exercise,Balance Retraining,Post Op Education, Discharge Planning,Hot or Cold Pack,Neuromuscular Re-ed Precautions Anterior Hip Precautions No Hip Extension,No Hip External Rotation Other Precautions left hip WBAT with anterior hip precautions Weight Bearing Status Weight Bearing Status Weight Bear as Tolerated Recommendations To Nursing Amount of Assist Needed Standby Assistance Discharge Recommendations PT Discharge Recommendations Home with Assistance, Outpatient PT Other Discharge Recommendations he reports out-pt PT is scheduled in about a week Transportation Needs at Discharge Private Vehicle
[2022-02-20] MEDS: ASPIRIN EC 81 MG TABLET PO (20:51)
[2022-02-20] MEDS: DOCUSATE 100 MG CAPSULE PO (20:51)
[2022-02-21] VITALS: BP 103/54; PULSE 73; RESP 16; TEMP 36.3; O2SAT 97
[2022-02-21] MEDS: IBUPROFEN 400 MG TABLET PO ×2 (00:14→05:46)
[2022-02-21] MEDS: ACETAMINOPHEN 325 MG TABLET 650 MG PO ×2 (00:14→05:46)
[2022-02-21] MEDS: LACTATED RINGERS 1,000 ML 125 ML IV (03:00)
[2022-02-21 04:00] VITALS: BP 106/50; PULSE 74; RESP 17; TEMP 37; O2SAT 94
[2022-02-21 05:46] LABS: Hematocrit 32.6 % (41-53); Hemoglobin 11.1 g/dL (13.5-17.5)
[2022-02-21] MEDS: LEVOTHYROXINE 88 MCG TABLET PO (06:37)
--- NOTE | 2022-02-21 07:32 | PM.DS.1 ---
History of Present Illness History of Present Illness Date Patient Seen: 02/21/22 Time Patient Seen: 07:33 Chief complaint: Hip pain Narrative: Pain is mild. Denies fever or chills. No nausea or vomiting. Patient has his home and available to assist him. Discharge Providers Provider Discharge Date: 02/21/22 Primary care physician: Russell Franco MD Consults: 02/13/22 10:45 Consult to Anesthesiology Routine Comment: Consulting Provider: Anesthesiologist Reason for consultation: Surgeon requested re: History of COVID 02/19/22 15:25 Consult to Anesthesiology Routine Comment: Consulting Provider: Anesthesiologist Reason for consultation: Regional block for post operative pain control 02/20/22 11:44 Consult to Discharge Planning Routine Comment: Consult to Physical Therapy Evaluate & Treat Comment: Physician Instructions: post op MODESTO protocol Consult to Respiratory Therapy Evaluate & Treat Comment: Physician Instructions: Evaluate and treat Discharge provider: Niels Mccartney PA-C Summary Hospital Course Discharge Diagnosis: Left hip osteoarthritis Hospital Course: Left total hip arthroplasty anterior approach Same procedure as scheduled: Yes Indications: The patient has had progressively worsening left hip pain with radiographic changes consistent with arthritis. Non-operative management has failed and the patient has requested total hip replacement. The risks, benefits and alternatives to surgery were discussed with the patient prior to proceeding. Risks discussed included, but were not limited to, failure to relieve pain, leg length discrepancy, dislocation, stiffness, infection, nerve damage, deep venous thrombosis, pulmonary embolism, stroke, coma, heart attack, permanent paralysis and , as well as the potential need for eventual revision of the prosthetic. Surgeon: Luz Latif Garnett Machine Operator Helper: Niels Mccartnye Anesthesia Type: General and Spinal Operative Notes Findings: Severe left hip arthritis, adequate stability, adequate bone Closure Type: primary Specimen(s): none sent Prosthetic devices, grafts, tissues, transplants, or devices: Latif and nephew R3 54 anthology, two 6.5 mm screw, size 9 standard offset anthology, neutral poly liner,-3 Oxinium femoral head Estimated Blood Loss (mL): 250 Blood products transfused: none Patient admitted to the hospital for left total hip arthroplasty, anterior approach. Patient consented to the same. Patient taken operating room on February 20, 2022. Patient underwent left total hip arthroplasty anterior approach. Patient back in his room recovering well as in stable condition. Weight-bearing as tolerated with anterior hip precautions. Multimodal pain management. Discharge home today after physical therapy if safe for home environment. Exam Vital Signs (past 8 hours): - 02/21/22 00:00 02/21/22 04:00 Temperature 97.4 F L 98.6 F Pulse Rate 73 74 Respiratory Rate 16 17 Blood Pressure 103/54 L 106/50 L Pulse Oximetry 97 94 Oxygen Delivery Method Room Air Narrative Exam Narrative: 71-year-old male resting comfortably in bed in no apparent distress. Left hip dressing is Clean, dry, intact.. Motor functions intact bilateral lower extremities. Sensation grossly intact to light touch bilateral lower extremities. Const General: cooperative Objective Labs Result Diagrams: 02/21/22 05:36 Labs: Laboratory Results - last 24 hr 02/21/22 05:36 Hgb 11.1 L Hct 32.6 L PFSH Medical History History of torn meniscus of left knee HLD (hyperlipidemia) Hypothyroidism Lipoma Osteoarthritis Surgical History History of total right hip arthroplasty (12/22/19) Hx of shoulder surgery Social History household members: spouse Smoking Status: Former smoker alcohol intake: current Discharge Assessment & Plan Assessment and Plan Assessment: Patient progressing as expected status post left total hip arthroplasty, anterior approach Plan of Treatment: Mobilize with physical therapy, weight-bearing as tolerated, and anterior hip precautions Multimodal pain management Discharge home today after physical therapy if safe for home environment. Discharge Plan Discharge Plan Patient Disposition: Home Provider Discharge Comment: Discharge home after physical therapy Discharge orders & Medications Discharge Orders: Discharge (Order); Ordered 02/21/22 Ordered By: Niels Mccartney Prescriptions: New acetaminophen 325 mg Tablet 650 mg PO Q6HR Qty: 60 0RF aspirin 81 mg Tablet,Delayed Release (Dr/Ec) 81 mg PO BID Qty: 60 0RF ibuprofen 400 mg Tablet 400 mg PO Q6HR Qty: 60 0RF Continued levothyroxine 88 mcg Tablet 88 mcg PO DAILY red yeast rice 600 mg Capsule 1,200 mg PO BID Discontinued ibuprofen 200 mg Tablet 400 mg PO BEDTIME PRN (Reason: Pain) acetaminophen 500 mg Capsule 500 mg PO BEDTIME PRN (Reason: Pain) Follow up/Referrals: Russell Franco MD [Primary Care Provider] - Luz Latif MD [Physician] - As previously scheduled (Follow up w/ Dr Latif on 03/07/2022 @ 11:00 am at [facility] Diet/Activity/Treatments Diet: Diet as Tolerated Activity: Weight bearing as tolerated to left leg. Anterior hip precautions. Cold/Heat Therapy: Ice to hip as needed for pain. Other treatments: Patient already has prescription for oxycodone to be taken as directed as needed for hip pain. Skin/Wound/Dressing Care Report to your healthcare provider any signs of infection, such as:: chills, fever, night sweats, unusual drainage and unusual redness Dressing: May shower. Leave Aquacel dressing in place until follow up appointment. No bathing or otherwise soaking incision. Visit Report/Discharge Packet Instructions: DI for Hip Replacement Stand Alone Forms: Surgery Discharge Discharge Data Primary Care Provider: Russell Franco Attending Provider: Luz Latif
--- NOTE | 2022-02-21 09:26 | PT.IPTN ---
Current Diagnoses Unilateral primary osteoarthritis, left hip (02/20/22) Surgery Performed Operation Date: 02/20/22 07:45 Actual Procedures p Total Hip Arthroplasty/Anterior Approach(Left) - Luz Latif MD Physical Therapy Treatment Note M2 PT-IP Current Condition Start: 02/20/22 16:18 Freq: NEEDED Status: Discharge Protocol: Document 02/20/22 16:18 DLM (Rec: 02/20/22 16:30 DLM [id number]) Physical Therapy Current Condition Current Condition Evaluation Date 02/20/22 Treatment Diagnosis left anterior MODESTO, difficulty walking Onset Date 02/20/22 M3 PT-IP Subjective Start: 02/20/22 16:18 Freq: NEEDED Status: Discharge Protocol: Document 02/21/22 09:12 KS (Rec: 02/21/22 11:36 KS [id number]) Subjective Physical Therapy Visit Type Type Treatment Note Visit Start Time 09:12 Visit Stop Time 09:26 Total Visit Minutes 14 Number of EVENT MARKETING ASSISTANT Visits 1 Physical Therapy Visit Comments Patient Comments Pt eager to return home M4 PT-IP Mobility and Gait Start: 02/20/22 16:18 Freq: NEEDED Status: Discharge Protocol: Document 02/21/22 09:12 KS (Rec: 02/21/22 11:36 KS [id number]) PT-Bed Mobility Assessment Supine to Sit Supine to Sit Independent Sit to Supine Sit to Supine Independent Scooting Scooting to Edge of Bed Independent PT-Transfer Assessment Sit to and From Stand Sit to and from Stand Standby Assistance,Use of Upper Extremities Equipment Transfer Assistive Device Gait Belt,Front Wheeled Walker Transfers Transfer Destination Bed,Chair Transfer Technique pt ambulated w/ FWW Transfer Ability Level of Assist Standby Assistance,1 Person Assistance,Use of Upper Extremities Comments Mobility Comments Pt in chair upon arrival, stood SBA w/ FWW and ambulated ~80 ft around room SBA w/o LOB and good use of FWW. Performed bed mobility and returned to chair indepenedently. Good knowledge and adherence of anterior hip precautions. Gait Assessment Gait Gait Assistance Required: Standby Assistance Distance (Feet) 80 Able to Maintain Weight Bearing Status Yes During Gait Assistive Devices Assistive Device Gait Belt,Front Wheeled Walker Gait Deviations General Gait Pattern Antalgic Factors Limiting Gait Function Factors Limiting Gait Function Decreased Activity Tolerance, Decreased Strength,Limited Range of Motion,Pain,Poor Balance Comments Gait Comments Refer to mobility Stair Climbing Assessment Comments Stair Climbing Comments no stairs at home PT-Balance Assessment Sitting Balance and Reactions Static Sitting Balance Ability Normal Dynamic Sitting Balance Ability Normal Standing Balance and Reactions Static Standing Balance Ability Good Dynamic Standing Balance Ability Good Device Used FWW M5 PT-IP Objective Assessments Start: 02/20/22 16:18 Freq: NEEDED Status: Discharge Protocol: Document 02/20/22 16:18 DL (Rec: 02/20/22 16:30 ON LICENSE OF [facility] [id number]) Orientation Orientation/Cognition Level of Alertness Alert Orientation Name,Age,Birthday,Month,Date, Year,Day of Week,Place, Situation Language Function Ability No Deficits Noted Safety Awareness Understands Safety Issues Memory Description No Deficits Noted Gross Range of Motion Upper Extremity ROM Assessment Within Functional Limits Lower Extremity ROM Assessment Left Impaired Impairments post-op restrictions left hip Strength Upper Extremity Strength Assessment Within Functional Limits Lower Extremity Strength Assessment Left Impaired Hip flexion is painful post op but he can move it independently Knee 4/5 Ankle DF 5/5 Coordination Assessment Gross Coordination Gross Coordination WNL Sensation Assessment Sensation Gross Sensation WNL Muscle Tone Muscle Tone WNL Yes M6 PT-IP Treatment Start: 02/20/22 16:18 Freq: NEEDED Status: Discharge Protocol: Document 02/21/22 09:12 KS (Rec: 02/21/22 11:36 IA [id number]) Physical Therapy Treatment Education Education Provided Precautions,Weight Bearing Status,Post-Op Packet,Safety Other Treatments Other Treatment Performed Reveiwed precautions, discussed at home safety and OPPT. M7 PT-IP Assessment and Plan Start: 02/20/22 16:18 Freq: NEEDED Status: Discharge Protocol: Document 02/21/22 09:12 KS (Rec: 02/21/22 11:36 IA [id number]) PT Summary Assessment and Plan Potential Rehabilitation Potential Excellent Summary Impairments Pain,ROM,Strength,Balance,Bed Mobility,Transfers,Gait, Activity Tolerance Progress Towards Goals Progressing Toward Goals Assessment Summary Pt able to move around room independently w/ FWW w/ good adherence to precautions. Good tolerance for ambulation w/ FWW and no c/o lightheadedness . Feels safe and eager to d/c home. Will benefit from OPPT to improve strength and stability. Goals Bed Mobility Goal Independent Transfer Goal Independent,Front Wheeled Walker Gait Goal Independent,Front Wheel Walker Gait Distance 150 feet Other Goals demonstrate good knowledge of his left anterior hip precautions Days to Meet Goals 2 Frequency of Treatment Frequency Of Treatment Twice a Day Treatment Plan Physical Therapy Treatment Plan Bed Mobility Training,Transfer Training,Gait Training, Therapeutic Exercise,Balance Retraining,Post Op Education, Discharge Planning,Hot or Cold Pack,Neuromuscular Re-ed Precautions Anterior Hip Precautions No Hip Extension,No Hip External Rotation Other Precautions left hip WBAT with anterior hip precautions Weight Bearing Status Weight Bearing Status Weight Bear as Tolerated Recommendations To Nursing Amount of Assist Needed Standby Assistance Discharge Recommendations PT Discharge Recommendations Home with Assistance, Outpatient PT Other Discharge Recommendations he reports out-pt PT is scheduled in about a week Transportation Needs at Discharge Private Vehicle
[2022-02-21] MEDS: DOCUSATE 100 MG CAPSULE PO (09:38)
[2022-02-21] MEDS: ASPIRIN EC 81 MG TABLET PO (09:38)
--- NOTE | 2022-02-21 11:31 | CM.DANOTE ---
DCP: Case received, EMR reviewed and met with patient. Introduced self and role. Was able to obtain information regarding patient's baseline activity status prior to surgery. DCP assessment completed with information currently available. Patient is a 71 year old male who admitted yesterday morning to the care of the orthopedic team. PCP: Dr. Franco. Payer: confirmed: [facility] Advantage. Patient came to the hospital via private vehicle for a surgical procedure. Patient had left total hip arthroplasty. Patient has history of osteoarthritis. Met with patient in is room. He was sitting up in his chair having his breakfast. He is alert and oriented, and resides here in [place] with his spouse, Sho. At his baseline, he is independent. Confirmed that his spouse will be able to assist him when he goes home. P: Patient is discharging home today. Ophelia Pate RN/[employer] Discharge Planning/Care Management CM Discharge Assessment Start: 02/21/22 11:29 Freq: Status: Active Protocol: Document 02/21/22 11:30 (Rec: 02/21/22 11:31 [id number]) Discharge Planning Assessment Assigned Human Resources Generalist Ophelia Pate RN/[employer] Advance Directives? Yes Advance Directives on File No History Provided By Patient,Medical Record Prior Living Arrangements House Household Members spouse Type of transporation used prior to Drives own vehicle admit Willing to Return to Facility? No Independent with ADL's Yes Is patient alert and oriented? Yes Caregiver for Another No Patient/Family Preference OP PT Therapy Barriers to Discharge No Discharge Plan Home Transportation Arrangement Family to provide transport. Referrals Initiated None needed Whiteboard Updated in Patient Room with Yes name and ext. # of Human Resources Generalist Review Status In Process Next Review Type Continued Stay Review Pre-Anesthesia Assessment Start: 02/13/22 09:49 Freq: Status: Discharge Protocol: Document 02/13/22 09:49 CAB (Rec: 02/13/22 10:22 CAB [id number]) Pre-Anesthesia Assessment Patient Information Reviewed Via Phone Assessment Assessment Completed With Patient Diagnostic Results BMP/CMP,CBC,EKG,Urinalysis Comment Labs/ECG @ [facility] 02/02/22, COVID screen @ 02/19/22 Primary Care Provider Russell Franco Seen Specialist in Last 12 Months Yes Specialist Seen Psychologist Engineering,Orthopedist Primary Language Congolese Preferred Language Congolese Opener Tender Required No Height 6 ft Weight 158 lb 0.014 oz Body Mass Index (BMI) 21.4 Hearing Ability Normal Visual Assist Glasses Dentition Type Teeth, Natural Present Barriers to Learning None Hx Anesthesia Reactions Yes: Pt feels anesthesia caused extreme constipation s/ p lipoma removed Hx Family Anesthesia Reaction No Hx Malignant Hyperthermia No Hx Blood Transfusions No Anesthesia Review Requested Yes: Surgeon requested re: History of COVID Range Management Specialist No alcohol intake current alcohol intake frequency 0-2 drinks per day Smoking Status Former smoker Tobacco type cigarettes,pipe how long ago did patient quit smoking Quit 1972 Substance Use Type marijuana Comment Advised not to smoke marijuana 24 hours prior Pain Present Pain Reported Musculoskeletal Symptoms Abnormal Gait,Difficulty Walking,Joint Pain History of Falling (Recent or History of No ) Patient is completely paralyzed or No completely immobile Mental Status Oriented to own ability Is patient on oxygen? No Does patient have SALEH/SOB No Hx Sleep Apnea No Currently Taking a Beta Raf No Can You Climb a Flight of Stairs Without Yes SOB Hx Chest Pain No Hx SOB No Hx Syncope or Dizziness No Anti-Coagulant Therapy No Has a Rail Car Driver No Cardiac Testing No Hx Pacemaker/ICD No Pacemaker Rep Required? No Cardiac Clearance Received Not Applicable Diet Type At Home Regular dysphagia No Gastrointestinal Symptoms Constipation Urinary Catheter Present No Hx Urinary Self Catheterization No Diabetes No HgbA1C 5.6 Date 02/02/22 Hx Drug Resistant Organism No Presence of External or Internal Medical Yes: Right hip prosthesis Devices Have you had any close contact with Pt had COVID 12/25/2021-severe someone diagnosed with COVID-19? flu symptoms Are you experiencing any of these No symptoms symptoms? Received a COVID vaccine? Yes Received all doses? Yes Marital Status Lives With spouse Prior Living Arrangements House Number of Floors (Floors) One Floor Support System Spouse Does the Patient Have Assistance After Yes Surgery Patient Discharge Plan Description Return Home Comment Pt advised 1 night length of stay per surgeon Feels Safe in Current Environment Yes Been Physically Hurt or Threatened By a No Person in Current Environment Do you have thoughts of harming yourself None or others? Are you currently considering suicide? No Do you have a plan to hurt yourself or No Plan others? Do You Have Any Spiritual Beliefs That No May Affect Your HC Choices? Do You Have Any Cultural Practices That No May Affect Your HC Choices? Comment Muslim Who Can We Speak to About Patient's Care Family, friends Identifying Code for Release of Patient Declines to issue Information Health Care Proxy/Next of Kin Sho () Health Care Proxy Emergency Contact Name Sho () Emergency Contact Advance Directives? Yes Advance Directives on File No Power of Home Coordinator Yes Power of Home Coordinator Name Sho () Power of Home Coordinator PAC Instructions Durable medical equipment, Medications to take/avoid, Nasal antibiotic,No ETOH/ petroleum product on skin DOS, NPO,Pre-surgical wash,Sensory aids,Sturdy shoes/comfortable clothes,Do not bring valuables and remove jewelry
== END 2022-02-21 10:09 | disposition home or self-care (01) ==
LOC: OR 06:40 → AC 06:41
PROVIDERS: Admitting Provider Orthopaedic Surgery; PCP Internal Medicine; Referring Provider Orthopaedic Surgery; Visit Provider Orthopaedic Surgery
PROC: (CPT 27130; principal; 2022-02-20 07:45)
DX: M16.12 Unilateral primary osteoarthritis, left hip (principal); E03.9 Hypothyroidism, unspecified; Z96.641 Presence of right artificial hip joint
CPT/HCPCS: 27130; 36415; 73502; 76000; 85014; 85018; 97116; 97162; C1776; G0378; C9290; J0171; J1100; J1170; J2250; J2405; J2704; J3010

== ENCOUNTER → 2022-05-18 10:58 | Outpatient (CLI) | payer OTHER, SELFPAY ==
[2022-02-20 13:37] VITALS: BMI 21.4
[2022-05-18 13:39] LABS: Influenza A - CEPHEID Flu A NEGATIVE (NEGATIVE); Influenza B - CEPHEID Flu B NEGATIVE (NEGATIVE); Respiratory Syncytial Virus Negative (Negative)
[2022-05-18 13:40] LABS: COVID-19 CEPHEID 4-PLEX PCR Negative (Negative)
== END ==
PROVIDERS: PCP Internal Medicine; Visit Provider Physician Assistant
DX: R05.9 Cough, unspecified (principal)
CPT/HCPCS: 0241U

== ENCOUNTER → 2022-05-18 11:47 | Outpatient (CLI) | payer OTHER, SELFPAY ==
[2022-02-20 13:37] VITALS: BMI 21.4
--- NOTE | 2022-05-18 11:53 | DI.RAD.S_ITS ---
PROCEDURE: XR CHEST 2V INDICATIONS: cough TECHNIQUE: 2 views of the chest were acquired. COMPARISON: None. FINDINGS: Surgical changes and devices: None. Lungs and pleura: Lungs are clear. No pleural effusions or pneumothorax. Mediastinum: Mediastinal contours are normal. Heart size is normal. Bones and chest wall: No suspicious bony abnormalities. Soft tissues appear unremarkable. IMPRESSION: No acute cardiopulmonary abnormality identified. Dictated by: Len Hassan M.D. on 05/18/2022 at 13:00 Approved by: Len Hassan M.D. on 05/18/2022 at 13:01
== END ==
PROVIDERS: PCP Internal Medicine; Referring Provider Physician Assistant; Visit Provider Physician Assistant
DX: R05.9 Cough, unspecified (principal)
CPT/HCPCS: 0241U; 71046

== ENCOUNTER → 2023-03-15 14:11 | Outpatient (CLI) | payer OTHER, SELFPAY ==
[2022-02-20 13:37] VITALS: BMI 21.4
[2023-03-18 16:35] LABS: Fecal Immunochemical Test Negative (Negative)
== END ==
PROVIDERS: PCP Internal Medicine; Referring Provider Internal Medicine; Visit Provider Internal Medicine
DX: Z12.11 Encounter for screening for malignant neoplasm of colon (principal)
CPT/HCPCS: 82274

== ENCOUNTER → 2023-03-16 08:00 | Outpatient (CLI) | payer OTHER, SELFPAY ==
[2022-02-20 13:37] VITALS: BMI 21.4
[2023-03-16 08:25] LABS: Hematocrit 41.6 % (41-53); Hemoglobin 13.7 g/dL (13.5-17.5); Mean Corpuscular Hemoglobin 29.5 PG (26-34); Mean Corpuscular Volume 89.2 fL (80-100); Platelet Count 189 X10^3/uL (150-400); Red Blood Cell Count 4.66 X10^6/uL (4.5-5.9); Red Cell Distribution Width 14.2 % (11.6-14.8); White Blood Cell Count 4.8 X10^3/uL (4.5-11.0)
[2023-03-16 08:41] LABS: Alanine Aminotransferase 26 IU/L (<50); Albumin 4.3 g/dL (3.5-5.0); Albumin Globulin Ratio 1.4 (1.0-2.8); Alkaline Phosphatase 64 U/L (38-126); Aspartate Aminotransferase 27 IU/L (17-59); BUN Creatinine Ratio 19.1 (6-22); Bilirubin Total 0.8 mg/dL (0.2-1.3); Blood Urea Nitrogen 17 mg/dL (9-20); Calcium 9.9 mg/dL (8.4-10.2); Carbon Dioxide 31 mmol/L (22-32); Chloride 100 mmol/L (98-107); Cholesterol 170 mg/dL (140-199); Estimated Glomerular Filt Rate > 60 mL/min (>60); Globulin 3.1 g/dL (1.7-4.1); Glucose 108 mg/dL (80-110); HDL Cholesterol 63 mg/dL (40-60); HEMOLYSIS < 15 (0-50); LDL Cholesterol Calculated 86 mg/dL (<100); Sodium 138 mmol/L (137-145); Total Protein 7.4 g/dL (6.3-8.2); Triglycerides 107 mg/dL (35-150)
[2023-03-16 09:09] LABS: TSH w/ Reflex to FT4 1.43 uIU/mL (0.47-4.68)
== END ==
PROVIDERS: PCP Internal Medicine; Referring Provider Internal Medicine; Visit Provider Internal Medicine
DX: E03.9 Hypothyroidism, unspecified (principal); E78.2 Mixed hyperlipidemia
CPT/HCPCS: 36415; 80053; 80061; 84443; 85027

== ENCOUNTER → 2023-06-13 10:13 | Outpatient (CLI) | payer OTHER, SELFPAY ==
[2022-02-20 13:37] VITALS: BMI 21.4
[2023-06-13 11:27] LABS: Prostate Specific Antigen 1.87 ng/mL (0.10-4.00)
[2023-06-13 13:16] LABS: Hemoglobin A1C% w Est Avg Glu 5.6 % (4.0-6.0)
== END ==
PROVIDERS: PCP Internal Medicine; Referring Provider Internal Medicine; Visit Provider Internal Medicine
DX: R73.01 Impaired fasting glucose (principal); N40.1 Benign prostatic hyperplasia with lower urinary tract symptoms; N13.8 Other obstructive and reflux uropathy
CPT/HCPCS: 36415; 83036; 84153

== ENCOUNTER 2023-08-13 07:00 | Day surgery (SDC) | payer OTHER, SELFPAY ==
[2022-02-20 13:37] VITALS: BMI 21.4
[2023-08-13 07:15] VITALS: BP 129/79; PULSE 68; RESP 16; TEMP 36.6; O2SAT 97
[2023-08-13] MEDS: LACTATED RINGERS 1,000 ML 42 ML IV (07:23)
--- NOTE | 2023-08-13 07:44 | P.HP_ITS ---
History of Present Illness History of Present Illness Date Patient Seen: 08/13/23 Time Patient Seen: 07:44 Chief complaint: Colonoscopy Narrative: 73-year-old and here for screening colonoscopy. Last colonoscopy 10-15 years ago normal. No family history of intestinal malignancy. No abdominal concerns today. [facility] Medical History COVID-19 (~11/2021) Cataracts, bilateral Hemorrhoid Allergic rhinitis Erectile dysfunction Impaired fasting glucose Osteoarthritis cervical spine Primary osteoarthritis involving multiple joints Acquired hypothyroidism Mixed hyperlipidemia History of torn meniscus of left knee Surgical History History of total left hip replacement (~2021) History of total right hip arthroplasty (12/22/19) Lipoma (~2012) Hx of shoulder surgery (~2015) Family History Brother Asthma Pulmonary emboli Sister Psoriasis B-cell lymphoma Rectal cancer Grandfather Cancer Grandmother Cancer Grandfather Suicide Grandmother Cholelithiasis Social History details: , children, retired household members: spouse Smoking Status: Former smoker alcohol intake: current Meds Home Medications and Allergies Home Medications Medication Instructions Recorded Confirmed Type red yeast rice 600 mg capsule 1,200 mg PO BID 12/15/19 06/13/23 History levothyroxine 88 mcg tablet 88 mcg PO DAILY #90 tabs 10/17/22 08/13/23 Rx loratadine 10 mg tablet 10 mg PO DAILY PRN allergy symptoms 10/17/22 06/13/23 History sildenafil (pulm.hypertension) 20 20 mg PO DAILY PRN sexual activity 10/17/22 06/13/23 Rx mg tablet #30 tabs peg 3350-electrolytes 236 240 ml PO Q10M #4,000 mL 08/02/23 Rx gram-22.74 gram-6.74 gram-5.86 gram solution (Golytely) Allergies Allergy/AdvReac Type Severity Reaction Status Date / Time cefdinir [From Omnicef] Allergy Severe multiformed Verified 08/13/23 07:15 erythema all over body Exam Vital Signs (past 8 hours): - 08/13/23 07:15 Temperature 97.8 F Pulse Rate 68 Respiratory Rate 16 Blood Pressure 129/79 Pulse Oximetry 97 Oxygen Delivery Method Room Air Oxygen Delivery Method Room Air Narrative Exam Narrative: General adult man alert oriented no acute distress Chest nonlabored respiration Extremities warm well perfused Assessment & Plan Assessment & Plan narrative: The patient requires colorectal screening and colonoscopy is recommended. Technical details were discussed. Risks, benefits, alternatives explained. Ris ks including but not limited to myocardial infarction, aspiration, bleeding, pain, missed lesion, incomplete examination, need for further radiographic studies, colonic perforation, and need for major abdominal surgery were discussed. All questions were answered to their satisfaction, and they are in agreement with this plan.
[2023-08-13 08:11] VITALS: BP 101/61; PULSE 75; RESP 19; TEMP 36.2; O2SAT 96
--- NOTE | 2023-08-13 08:12 | P.OP.COLON_ITS ---
Operative Date/Time/Diagnoses Date of procedure: 08/13/23 Time of procedure: 08:12 Pre-op diagnosis: Screening colonoscopy Procedure & Clinicians Study performed: Sigmoidoscopy Indications: Colorectal screening Surgeon: Rene Mcintosh Procedure Notes Procedure in detail: The history and physical was performed/updated and the patient is ASA class is 2. The procedure was discussed in detail with the patient. Potential risks complications including infection, bleeding, missed diagnosis, perforation, need for surgery, and were explained. Their questions were answered and informed consent was obtained. Patient was brought to the procedure room and placed standard monitoring equi pment. The patient's vital signs were monitored continuously throughout the entire procedure. Prior to starting time-out was performed. The patient was placed in the left lateral recumbent position. Procedural sedation was administered by anesthesia. Examination began with a thorough inspection of the perianal area there was no evidence of fissures, fistulae, external hemorrhoids or cutaneous malignancy. The colonoscopy scope was then placed into the anal canal and was advanced forward. At 40 cm to the verge there is a tight turn within the sigmoid/descending colon. Despite multiple attempts no safe forward progress could be made. A sigmoidoscopy was performed a colonoscopy was aborted. The scope was then slowly withdrawn examining the mucosa which was without abnormality. Specimen(s): none sent Impression: Normal sigmoidoscopy Post-procedure Plan for aftercare: Barium enema ordered Disposition: same day surgery
[2023-08-13 08:16] VITALS: BP 97/69; PULSE 69; RESP 17; O2SAT 96
[2023-08-13 08:20] VITALS: BP 99/71; PULSE 65; RESP 13; O2SAT 96
[2023-08-13 08:30] VITALS: BP 112/80; PULSE 68; RESP 12; O2SAT 97
== END 2023-08-13 08:37 | disposition home or self-care (01) ==
PROVIDERS: PCP Internal Medicine; Referring Provider Surgery; Visit Provider Surgery
PROC: 0DJD8ZZ Inspection of Lower Intestinal Tract, Via Natural or Artificial Opening Endoscopic (ICD-10-PCS; CPT 45378; principal; 2023-08-13 07:45)
DX: Z12.11 Encounter for screening for malignant neoplasm of colon (principal)
CPT/HCPCS: 45330; J2704

== ENCOUNTER → 2023-10-15 10:32 | Outpatient (CLI) | payer OTHER, SELFPAY ==
[2022-02-20 13:37] VITALS: BMI 21.4
--- NOTE | 2023-10-15 11:00 | DI.RAD.S_ITS ---
PROCEDURE: FL BARIUM ENEMA INDICATIONS: Incomplete colonoscopy COMPARISON: None. FINDINGS: KUB: Preprocedural nut dehydrator operator film demonstrates a normal bowel gas pattern. No suspicious abdominal calcifications. Visualized solid organ contours appear normal in size. No suspicious bony lesions. Colon: There is adequate opacification of the entire colon. No strictures or extrinsic mass effects are identified. No colonic fistulae or perforations. Colon caliber appears normal. Colonic diverticulosis without evidence of diverticulitis. IMPRESSION: No obstructing colonic mass. Colonic diverticulosis without evidence of diverticulitis. Dictated by: Raad Ortega M.D. on 10/16/2023 at 8:31 Approved by: Raad Ortega M.D. on 10/16/2023 at 8:32
== END ==
PROVIDERS: PCP Internal Medicine; Referring Provider Surgery; Visit Provider Surgery
DX: Z12.11 Encounter for screening for malignant neoplasm of colon (principal); K57.90 Diverticulosis of intestine, part unspecified, without perforation or abscess without bleeding
CPT/HCPCS: 74270

== ENCOUNTER → 2023-12-13 08:16 | Outpatient (CLI) | payer OTHER, SELFPAY ==
[2022-02-20 13:37] VITALS: BMI 21.4
--- NOTE | 2023-12-13 08:17 | DI.US.S_ITS ---
PROCEDURE: US SCROTUM INDICATIONS: testicule lump TECHNIQUE: Real-time scanning was performed of the scrotum and testicles, with image documentation. Color and pulse Doppler interrogation was performed of both testicles. COMPARISON: None. FINDINGS: Right: Testicle is normal in size at 4.6 x 2.4 x 3.8 cm, and homogenous in echotexture. Epididymis is normal in overall size and morphology. There is a 0.5 cm epididymal head cyst. No hydrocele or varicoceles. Overlying scrotal skin is normal in thickness. Left: Testicle is normal in size at 5.0 x 2.3 x 4.1 cm, and homogeneous in echotexture. Epididymis is normal in overall size and morphology. There is a 0.5 cm epididymal head cyst. No hydrocele or varicoceles. There is a left spermatocele which measures 5.5 x 2.8 x 5.0 cm. Trace internal echoes are noted within. Overlying scrotal skin is normal in thickness. Doppler: Color and pulse Doppler demonstrate normal and symmetric arterial flow in both testicles. IMPRESSION: 1. Large left spermatocele which likely corresponds as palpated by the patient. 2. Small bilateral epididymal head cysts. Dictated by: Jocelyn Landrum M.D. on 12/13/2023 at 13:28 Approved by: Jocelyn Landrum M.D. on 12/13/2023 at 13:29
== END ==
LOC: US 08:17
PROVIDERS: PCP Internal Medicine; Referring Provider Internal Medicine; Visit Provider Internal Medicine
DX: N43.3 Hydrocele, unspecified (principal); N43.40 Spermatocele of epididymis, unspecified; N50.3 Cyst of epididymis
CPT/HCPCS: 76870; 93975

== ENCOUNTER → 2024-06-15 10:34 | Outpatient (CLI) | payer OTHER, SELFPAY ==
[2024-05-19 09:27] VITALS: BMI 21.4
[2024-06-15 12:18] LABS: Hemoglobin A1C% w Est Avg Glu 5.7 % (4.0-6.0)
[2024-06-15 12:37] LABS: Aspartate Aminotransferase 30 IU/L (17-59); Blood Urea Nitrogen 22 mg/dL (9-20); Calcium 9.9 mg/dL (8.4-10.2); Carbon Dioxide 29 mmol/L (22-32); Chloride 102 mmol/L (98-107); Cholesterol 196 mg/dL (140-199); Estimated Glomerular Filt Rate > 60 mL/min (>60); Glucose 102 mg/dL (80-110); HDL Cholesterol 88 mg/dL (40-60); HEMOLYSIS < 15 (0-50); LDL Cholesterol Calculated 86 mg/dL (<100); Potassium 5.1 mmol/L (3.4-5.1); Sodium 136 mmol/L (137-145); Triglycerides 108 mg/dL (35-150)
[2024-06-15 13:05] LABS: Prostate Specific Antigen 1.49 ng/mL (0.10-4.00)
== END ==
PROVIDERS: PCP Internal Medicine; Referring Provider Internal Medicine; Visit Provider Internal Medicine
DX: R73.01 Impaired fasting glucose (principal); E03.9 Hypothyroidism, unspecified; N40.1 Benign prostatic hyperplasia with lower urinary tract symptoms; N13.8 Other obstructive and reflux uropathy
CPT/HCPCS: 36415; 80048; 80061; 83036; 84153; 84450

== ENCOUNTER → 2024-08-06 09:02 | Outpatient (CLI) | payer OTHER, SELFPAY ==
[2024-05-19 09:27] VITALS: BMI 21.4
== END ==
PROVIDERS: PCP Internal Medicine; Visit Provider Urology
DX: R39.9 Unspecified symptoms and signs involving the genitourinary system (principal)
CPT/HCPCS: 87086

== ENCOUNTER 2024-08-10 06:25 | Day surgery (SDC) | payer OTHER, SELFPAY ==
[2024-05-19 09:27] VITALS: BMI 21.4
[2024-08-04 15:03] VITALS: BMI 22.9
[2024-08-10] VITALS (9 sets, daily range): BP systolic 105–119; BP diastolic 68–78; PULSE 60–71; RESP 10–19; TEMP 36.1–36.7; O2SAT 96–98; BMI 22.4
--- NOTE | 2024-08-10 | PATH_ITS ---
[facility] Accession Number: [id number] No. of containers..01 Tissue . 01 Material submitted: . spermatic cord - LEFT SPERMATOCELE . 01 Diagnosis: LEFT SPERMATOCELE, SPERMATOCELECTOMY: Spermatocele. Negative for atypia or malignancy. MRV 08/12/2024 1536 Local . 01 Electronically signed: . Aurelio Gonzalez MD, Pathologist NPI- [id number] . 01 Gross description: . Received in formalin with two patient identifiers and left spermatocele, is an intact, translucent cyst, 5.3 x 4.0 x 2.6 cm. The external surface is inked blue. The cyst contains cloudy serous fluid. The aguirre average less than 0.1 cm thick with a unilocular cyst area and no thickening or excrescences identified. Gold Cutter sections are submitted in A1-A2. ([id number]) /MRV 08/11/2024 1453 Local . 01 Pathologist provided ICD-10: N43.40 . 01 CPT . 293539 Performed at: [address] [id number] MD Cole Mcintyre MD Phone: [phone]
--- NOTE | 2024-08-10 07:25 | PM.PREOP ---
Pre-operative Note COVID-19 COVID-19 status: Not tested Interval Note History & Physical reviewed/Exam performed by Physician: Yes Changes to H&P: No
[2024-08-10] MEDS: LACTATED RINGERS 1,000 ML 21 ML IV (07:29)
--- NOTE | 2024-08-10 07:39 | SUR.OPER ---
Supine on padded OR bed, head on pillow, arms secured on padded arm boards at <90 degrees abduction, legs uncrossed, safety belt at thigh, tape over blanket over lower legs.
[2024-08-10] MEDS: CLINDAMYCIN 900 MG/50 ML PIGGYBACK 50 MG IV (07:46)
[2024-08-10] MEDS: BUPIVACAINE 0.5% (PF) 30 ML VIAL INJ (08:08)
[2024-08-10] MEDS: LIDOCAINE 1% 20 ML INJ (08:09)
[2024-08-10] MEDS: BACITRACIN 28 GM OINT 1 APPLIC TOP (08:56)
--- NOTE | 2024-08-10 09:21 | P.OP_ITS ---
Operative Date/Time/Diagnoses Date of procedure: 08/10/24 Procedure & Clinicians Procedure: Left spermatocelectomy Same procedure as scheduled: Yes Indications: 74 y/o M noted to have a large left symptomatic spermatocele. Surgeon: Valeriy Contreras Click Yes if Unassisted: Yes Anesthesia Type: General Operative Notes Findings: Large left spermatocele Closure Type: primary Specimen(s): other (left spermatocele) Estimated Blood Loss (mL): 5 Procedure in detail: Patient was identified in the preoperative holding area and consent confirmed. He was then brought to the operating room and placed supine on the operating room table where general anesthesia was induced. All bony prominences were then properly padded and he was prepped and draped in the standard sterile fashion. A surgical timeout was conducted and all members of the operating team were in agreement. A 4cm transverse incision was marked on the left hemiscrotum using a marking pen. This was then incised using a 15 blade. The dissection was then carried down through the subcutaneous tissue and dartos fascia using bovie electrocautery. The testicle was then delivered onto the operative field through the incision. The tunica vaginalis was then incised using Bovie electrocautery and attention was turned to the large left spermatocele. This was dissected free from the surrounding epididymis and tunica vaginalis and the stalk from which it arised was isolated. This was ligated using 3-0 silk ties. The spermatocele sac was then excised and passed off the operative field as permanent specimen. Throughout the entire procedure, care was taken to avoid the left testicle and spermatic cord, which were both preserved at case end. The tunica vaginalis overlying the left epididymis was then closed using 3-0 Vicryl in a running fashion. The scrotum was then inspected for hemostasis, which was noted to be excellent. A risa drain was then brought out the inferior most portion of his left hemiscrotum and secured to the skin using a 3- 0 Nylon stitch. The left testicle was placed back into the left hemiscrotum in correct anatomic position and without twisting of the spermatic cord. The incision was then closed in two separate layers. Dartos was reapproximated using 3-0 Vicryl in a running fashion. The skin edges were then reapproximated using 3-0 Chromic in a running baseball stitch fashion. Bacitracin was then applied to the incision. A total of 30cc of 1:1 mixture of 1% Lidocaine plain and 0.5% Marcaine plain was used for incision and cord block anesthetic. Fluff gauze and scrotal support was then placed over the incision. Anesthesia was reversed, he was extubated in the OR and transferred to the PACU in stable condition for recovery. Complications: none Post-operative Condition: stable Disposition: PACU Plan for aftercare: Discharge home from PACU. Will return to Urology clinic at 0900 on 13 Aug 2024 to have his risa drain removed.
[2024-08-10] MEDS: ACETAMINOPHEN 325 MG TABLET 975 MG PO (10:09)
== END 2024-08-10 10:30 | disposition home or self-care (01) ==
PROVIDERS: PCP Internal Medicine; Referring Provider Urology; Visit Provider Urology
PROC: (CPT 54840; principal; 2024-08-10 07:45)
DX: N43.41 Spermatocele of epididymis, single (principal)
CPT/HCPCS: 54840; 82962; J1100; J2405; J2704; J3010

== ENCOUNTER → 2025-01-07 08:51 | Outpatient (CLI) | payer OTHER, SELFPAY ==
[2024-05-19 09:27] VITALS: BMI 21.4
--- NOTE | 2025-01-07 08:54 | DI.RAD.S_ITS ---
PROCEDURE: ORTHO-XR FOOT 3V WB LEFT COMPARISON: None. INDICATIONS: L FOOT BUNION/PAIN FINDINGS: No evidence of fracture or dislocation. Mild varus angulation at the 2nd metatarsophalangeal joint may be positional. Otherwise normal alignment. No suspicious osseous lesions. The soft tissues are grossly normal in appearance. IMPRESSION: No evidence of acute osseous abnormality. Dictated by: Vasquez Dye M.D. on 01/08/2025 at 21:22 Approved by: Vasquez Dye M.D. on 01/08/2025 at 21:27
== END ==
PROVIDERS: PCP Internal Medicine; Referring Provider Podiatrist Foot & Ankle Surgery; Visit Provider Podiatrist Foot & Ankle Surgery
DX: M21.612 Bunion of left foot (principal); M79.672 Pain in left foot
CPT/HCPCS: 73630

== ENCOUNTER → 2025-06-16 09:27 | Outpatient (CLI) | payer OTHER, SELFPAY ==
[2024-05-19 09:27] VITALS: BMI 21.4
[2025-06-16 10:04] LABS: Hematocrit 41.3 % (41-53); Hemoglobin 13.7 g/dL (13.5-17.5); Mean Corpuscular HGB Conc 33.2 % (30-36); Mean Corpuscular Hemoglobin 29.1 PG (26-34); Mean Corpuscular Volume 87.6 fL (80-100); Platelet Count 185 X10^3/uL (150-400)
[2025-06-16 10:17] LABS: Hemoglobin A1C% w Est Avg Glu 5.7 % (4.0-6.0)
[2025-06-16 10:43] LABS: Blood Urea Nitrogen 17 mg/dL (9-20); Calcium 9.7 mg/dL (8.4-10.2); Carbon Dioxide 30 mmol/L (22-32); Chloride 101 mmol/L (98-107); Cholesterol 200 mg/dL (140-199); Estimated Glomerular Filt Rate > 60 mL/min (>60); Glucose 96 mg/dL (70-99); HDL Cholesterol 75 mg/dL (40-60); HEMOLYSIS < 15 (0-50); Potassium 4.7 mmol/L (3.4-5.1); Sodium 138 mmol/L (137-145); Triglycerides 91 mg/dL (35-150)
[2025-06-16 11:15] LABS: Prostate Specific Antigen 1.74 ng/mL (0.10-4.00); TSH w/ Reflex to FT4 1.91 uIU/mL (0.47-4.68)
== END ==
PROVIDERS: PCP Internal Medicine; Referring Provider Internal Medicine; Visit Provider Internal Medicine
DX: E03.9 Hypothyroidism, unspecified (principal); E78.2 Mixed hyperlipidemia; R73.01 Impaired fasting glucose
CPT/HCPCS: 36415; 80048; 80061; 83036; 84153; 84443; 84450; 85027